=== PATIENT | male | born 1985 | race Caucasian/White ===

== ENCOUNTER 2016-11-07 23:39 | Emergency (ER) | payer MEDICAID ==
[~2016-11-07] VITALS: Ht 167.6 cm; Wt 84.0 kg
[2016-11-07 23:42] VITALS: Ht 167.6 cm; Wt 84.0 kg
[2016-11-08] MEDS ORDERED: HYDROCODONE/APAP (5/325) TAB PO ONE
[2016-11-08] MEDS ORDERED: LIDOCAINE 1% (MDV) 20 ML INJ SC ONE
--- NOTE | 2016-11-08 00:02 | ERA ---
ER Documentation Chief Complaint Date/Time DATE: 11/08/16 TIME: 00:00 Chief Complaint forehead laceration while playing basketball at 2130 HPI Otherwise healthy 22-year-old male presenting 30 minutes status post injury while playing basketball. Patient ran into another player and sustained a laceration to the right forehead. Denies any loss of consciousness, headache, altered mental status. Denies any trauma to other areas. Did not hit the ground. Last tetanus vaccination was 3-4 years ago. Patient has no other complaints and describes no other associated manifestations. Nursing notes have been reviewed and are consistent with history given. ROS All systems reviewed and are negative except as per history of present illness. Medications Home Meds Active Scripts Hydrocodone/Acetaminophen ([place] 5-325 Tablet) 1 Each Tablet, 1 TAB PO Q6H Y for PAIN, #7 TAB Prov:MEGHANA MERINO PA-C 11/08/16 Allergies Allergies: Coded Allergies: No Known Allergy (Unverified , 11/07/16) Physical Exam Vitals Vital Signs Date Time Temp Pulse Resp B/P Pulse Ox O2 Delivery O2 Flow Rate FiO2 11/07/16 23:42 98.2 64 20 129/62 98 Physical Exam Const: Healthy-appearing. Well-nourished. Well-developed. No acute distress. Skin: 5 cm jagged horizontal laceration starting at the hairline moving downwards towards the right eyebrow. No petechiae or rashes. No ulcer, induration, jaundice. Good turgor. Ext: No cyanosis or edema noted. Head: Normocephalic. As noted in skin exam. Eyes: Non-injected; No scleral erythema, or discharge. EOMI and GÓMEZ bilaterally. Ears: Normal External Ears, EACs clear, TM normal bilaterally without erythema. Nose: Normal nose without discharge, septal deviation, or sinus tenderness. Oral: No oral edema visualized. Mucous membranes moist and pink. Neck: No cervical lymphadenopathy, or masses. Trachea midline. Supple ~ No meningismus. Pulm: Good air movement in upper and lower respiratory tracts. No dyspnea, stridor, tripoding or drooling. Clear to auscultation bilaterally. Cardio: Regular rate and rhythm. No JVD grossly observed. Radial and posterior tibial pulses 2+ bilaterally. No cyanosis. Capillary refill less than 2 seconds. Abd: Soft, non tender, non distended. No guarding. Normal bowel sounds. MS: Normal motor strength, normal tone with gross examination. Back: No midline or flank tenderness. Neur: Neurovascularly intact bilaterally. Awake, alert and oriented x3. Results 24 hrs Current Medications Medications (Trade) Dose Ordered Sig/Mariam Route PRN Reason Start Time Stop Time Status Last Admin Dose Admin Lidocaine (Xylocaine 1% (Mdv) 20 ml) 20 ml ONCE ONCE SC 11/08/16 00:00 11/08/16 00:01 DC Acetaminophen/ Hydrocodone Bitart ([place] (5/325)) 1 tab ONCE ONCE PO 11/08/16 00:00 11/08/16 00:01 DC 11/08/16 00:19 Procedures/MDM Otherwise healthy 30-year-old male presenting 1-2 hours status post laceration to the forehead that he sustained playing basketball when his head impacted another player's elbow. Leg is clean. 4 cm vertical and jagged starting at the hairline running vertically downwards towards the right eyebrow. Denies any sensation changes. EOMI bilaterally. PERRLA bilaterally. I will suspicion for infection. Tetanus is up-to-date. Laceration was repaired using 4 mL of lidocaine without epi local injection. 4-0 nylon was used. 4 simple sutures were placed. There were no complications. Patient was neurovascularly intact before and after the procedure. No signs of infection. Visual acuity unchanged. No indication for antibiotics at this time. Patient has been instructed to follow-up within 2 days for reevaluation and in another 5 days for suture removal. I have spoke with the patient regarding their condition and future management. They have verbally responded that they understand their status and treatment plan. The patients vitals are stable, and their current condition is appropriate for discharge. The patient will be given discharge instructions with return precautions. Departure Diagnosis: Primary Impression: Laceration Condition: Stable Additional Instructions: Kemi un seguimiento con da silva PCP dentro de los prximos 1-3 asher para ramesh evaluaci n ms completa y ramesh posible derivacin a un especialista. Devuelva el departamento de emergencia inmediatamente si los sntomas empeoran o cambian. Si tiene alguna pregunta con respecto a los medicamentos, consulte con da silva farmac utico o con nosotros antes de salir. Si se producen reacciones adversas mientras zenaida juma medicamentos, suspenda el tratamiento y regrese inmediatamente al servicio de urgencias. [place] juma medicamentos segn las indicaciones y complete el curso completo del tratamiento. MEGHANA MERINO PA-C Nov 08, 2016 00:01
[2016-11-08] MEDS ORDERED: HYDR-906 PO (01:12)
== END 2016-11-08 00:26 | disposition home or self-care (01) ==
LOC: FTE 23:39
DX: S01.81XA Laceration without foreign body of other part of head, initial encounter (principal); W50.0XXA Accidental hit or strike by another person, initial encounter; Y92.9 Unspecified place or not applicable
CPT/HCPCS: 12013; Z7502; Z7610